=== PATIENT | female | born 1955 | race Two or more races ===

== ENCOUNTER 2020-02-25 18:59 | Inpatient (IN) | payer MEDICAID ==
[~2020-02-25] VITALS: Ht 157.5 cm; Wt 88.5 kg
[2020-02-25] MEDS ORDERED: DEXTROSE 50% WATER 50ML SYRINGE IV ONE (19:10)
[2020-02-25] MEDS ORDERED: CEFTRIAXONE 2 G PREMIX 50 ML IV ONE (19:15)
[2020-02-25] MEDS ORDERED: SODIUM CHLORIDE 0.9% 1000ML BAG (SEPSIS BOLUS) IV ONE (19:15)
[2020-02-25] MEDS ORDERED: METRONIDAZOLE 500 MG PREMIX 100 ML IV ONE (19:15)
[2020-02-25 19:42] LABS: HEMATOCRIT. 28.1 % (36.0-48.0); HEMOGLOBIN. 9.3 g/dL (12.0-16.0); MEAN CORPUSCULAR HEMOGLOBIN 34.4 pg (28.0-32.0); MEAN CORPUSCULAR VOLUME 103.9 fL (81.0-99.0); MEAN PLATELET VOLUME 9.6 fl (7.4-10.4); PLATELET 90 x1000/uL (130-400); RED CELL DISTRIBUTION WIDTH 16.7 % (11.6-14.6)
[2020-02-25] MEDS ORDERED: LACTULOSE 20G/30ML UDC PO ONE (19:45)
[2020-02-25 19:46] LABS: CHLORIDE 100 mEq/L (98-107)
[2020-02-25 19:49] LABS: INR 2.6; PROTHROMBIN TIME 26.2 sec (9.6-11.0)
[2020-02-25] MEDS ORDERED: ALBUMIN HUMAN 12.5GM/50ML (25%) IV ONE (20:00)
[2020-02-25] MEDS ORDERED: CALCIUM CHLORIDE 1GM/10ML SYR IV ONE ×2 (20:00→20:15)
[2020-02-25] MEDS ORDERED: ROCURONIUM BROMIDE 10MG/ML VIAL 5ML IV ONE (20:15)
[2020-02-25] MEDS ORDERED: ETOMIDATE 2MG/ML 10ML VIAL IV ONE (20:15)
[2020-02-25] MEDS ORDERED: NOREPINEPHRINE 8MG/250ML PMX 250 ML IV ONE ×2 (20:25→21:15)
[2020-02-25 20:45] LABS: BG CARBOXYHEMOGLOBIN 0.3 % (0.5-1.5); BG DEOXYHEMOGLOBIN 0.8 % (0.0-5.0); BG FRACTION INSPIRED OXYGEN 100; BG HCO3 ACT 10.6 mmol/L (22.0-26.0); BG METHEMOGLOBIN 0.5 % (0.0-1.5); BG OXYGEN SATURATION 99.2 % (92.0-98.5); BG OXYHEMOGLOBIN 98.4 % (94.0-97.0); BG PCO2 30.8 mmHg (35.0-45.0); BG PH 7.153 (7.350-7.450); BG PO2 232.3 mmHg (75.0-100.0); BG SAMPLE SITE RIGHT RADIAL; BG TIDAL VOLUME(mL) 400 mL; BG TOTAL HEMOGLOBIN 11.5 g/dL (12.0-18.0); BG VENT MODE VENT - A/C; BG VENT RATE 16 set
[2020-02-25 21:01] LABS: CLARITY URINE TURBID (CLEAR); COLOR URINE ORANGE (YELLOW); KETONES URINE TRACE (NEGATIVE); LEUKOCYTE ESTERASE URINE 1+ (NEGATIVE); NITRITE URINE POSITIVE (NEGATIVE); OCCULT BLOOD URINE TRACE (NEGATIVE); PROTEIN URINE 2+ (NEGATIVE); SPECIFIC GRAVITY URINE 1.021 (1.005-1.030)
[2020-02-25 22:26] LABS: PLATELET ESTIMATE DECREASED
[2020-02-25 22:47] LABS: BG BASE EXCESS -20.2 mmol/L (-2.0-2.0); BG CARBOXYHEMOGLOBIN 0.4 % (0.5-1.5); BG FRACTION INSPIRED OXYGEN 50; BG HCO3 ACT 10.5 mmol/L (22.0-26.0); BG METHEMOGLOBIN 0.5 % (0.0-1.5); BG OXYHEMOGLOBIN 94.1 % (94.0-97.0); BG PCO2 43.4 mmHg (35.0-45.0); BG PH 7.002 (7.350-7.450); BG SAMPLE SITE RIGHT RADIAL; BG TIDAL VOLUME(mL) 400 mL; BG TOTAL HEMOGLOBIN 12.5 g/dL (12.0-18.0); BG VENT MODE VENT - A/C; BG VENT RATE 16 set
[2020-02-25 23:30] VITALS: BP 120/89
[2020-02-25 23:51] VITALS: BP 44/29
[2020-02-25 23:54] VITALS: BP 111/78
[2020-02-26] VITALS (89 sets, daily range): BP systolic 40–164; BP diastolic 21–109
[2020-02-26] MEDS ORDERED: ONDANSETRON HCL 4MG/2ML INJ IV PRN (00:15)
[2020-02-26 00:56] LABS: BG BASE EXCESS -21.4 mmol/L (-2.0-2.0); BG CARBOXYHEMOGLOBIN 0.3 % (0.5-1.5); BG DEOXYHEMOGLOBIN 3.4 % (0.0-5.0); BG FRACTION INSPIRED OXYGEN 50; BG HCO3 ACT 8.9 mmol/L (22.0-26.0); BG METHEMOGLOBIN 0.1 % (0.0-1.5); BG OXYGEN SATURATION 96.6 % (92.0-98.5); BG OXYHEMOGLOBIN 96.2 % (94.0-97.0); BG PCO2 35.9 mmHg (35.0-45.0); BG PO2 119.4 mmHg (75.0-100.0); BG SAMPLE SITE RIGHT RADIAL; BG TIDAL VOLUME(mL) 400 mL; BG TOTAL HEMOGLOBIN 12.3 g/dL (12.0-18.0); BG VENT MODE VENT - A/C; BG VENT RATE 16 set
[2020-02-26] MEDS ORDERED: SODIUM BICARBONATE 100 MEQ in DEXTROSE 5% WATER 1,000 ML IV SCH (01:00)
[2020-02-26] MEDS ORDERED: SODIUM BICARBONATE 8.4% 1 MEQ/ML 50ML SYR IV ONE (01:12)
[2020-02-26] MEDS: LACTULOSE 20G/30ML UDC PO SCH ×5 (01:13→22:00)
[2020-02-26] MEDS: PANTOPRAZOLE SODIUM 40 MG/VIAL IV SCH ×2 (01:13→08:54)
[2020-02-26] MEDS ORDERED: SODIUM BICARBONATE 8.4% 1 MEQ/ML 50ML SYR IV SCH (01:15)
[2020-02-26] MEDS: NOREPINEPHRINE 32 MG in DEXT 5% WATER 218 ML IV PRN ×4 (01:18→22:08)
[2020-02-26] MEDS: DEXTROSE 50% WATER 50ML SYRINGE IV PRN ×3 (01:18→22:07)
[2020-02-26] MEDS: BLOOD SUGAR DIAGNOSTIC STRIP TEST SCH ×9 (01:42→18:19)
[2020-02-26] MEDS ORDERED: CEFEPIME 1,000 MG in DEXTROSE 5% WATER 50 ML IV SCH (02:00)
[2020-02-26] MEDS: METRONIDAZOLE 500 MG PREMIX 100 ML IV SCH ×3 (03:07→17:59)
[2020-02-26 05:40] LABS: HEMATOCRIT. 33.3 % (36.0-48.0); HEMOGLOBIN. 10.8 g/dL (12.0-16.0); MEAN CORPUSCULAR HEMOGLOBIN 34.6 pg (28.0-32.0); MEAN CORPUSCULAR VOLUME 106.7 fL (81.0-99.0); RED BLOOD CELL COUNT 3.12 mill/uL (4.2-5.4); RED CELL DISTRIBUTION WIDTH 17.1 % (11.6-14.6)
[2020-02-26 05:47] LABS: CHLORIDE 100 mEq/L (98-107)
[2020-02-26 07:50] LABS: PLATELET ESTIMATE SLIGHTLY DECREASED
[2020-02-26 07:51] LABS: MEAN PLATELET VOLUME 8.9 fl (7.4-10.4); PLATELET 120 x1000/uL (130-400)
[2020-02-26] MEDS: PHENYLEPHRINE 100 MG in DEXT 5% WATER 240 ML IV PRN ×3 (08:01→22:22)
[2020-02-26 08:54] LABS: BG BASE EXCESS -22.3 mmol/L (-2.0-2.0); BG CARBOXYHEMOGLOBIN 0.3 % (0.5-1.5); BG DEOXYHEMOGLOBIN 4.9 % (0.0-5.0); BG FRACTION INSPIRED OXYGEN 50; BG HCO3 ACT 7.8 mmol/L (22.0-26.0); BG METHEMOGLOBIN 0.3 % (0.0-1.5); BG OXYGEN SATURATION 95.1 % (92.0-98.5); BG OXYHEMOGLOBIN 94.5 % (94.0-97.0); BG PCO2 32.2 mmHg (35.0-45.0); BG PH 7.003 (7.350-7.450); BG PO2 98.3 mmHg (75.0-100.0); BG SAMPLE SITE RIGHT RADIAL; BG TIDAL VOLUME(mL) 400 mL; BG TOTAL HEMOGLOBIN 11.4 g/dL (12.0-18.0); BG VENT MODE VENT - A/C; BG VENT RATE 20 set
[2020-02-26] MEDS ORDERED: SODIUM BICARBONATE 8.4% 1 MEQ/ML 50ML SYR IV NR (09:00)
[2020-02-26] MEDS ORDERED: SODIUM POLYSTYRENE SULFONATE 15 G/60 ML BOT PO NR (11:00)
[2020-02-26] MEDS ORDERED: SODIUM BICARBONATE 150 MEQ in DEXTROSE 5% WATER 1,000 ML IV SCH (11:00)
[2020-02-26 11:03] LABS: CREATINE KINASE 604 IU/L (26-192)
[2020-02-26] MEDS ORDERED: LACTULOSE 300 ML in WATER FOR IRRIGATION,STERILE 700 ML IR SCH (12:00)
[2020-02-26] MEDS ORDERED: PHYTONADIONE 10MG/ML AMP SUBCUT NR (12:30)
[2020-02-26] MEDS: VASOPRESSIN 20 UNIT in SODIUM CHLORIDE 0.9% 99 ML IV PRN ×2 (14:08→22:23)
[2020-02-26] MEDS ORDERED: FLUDROCORTISONE ACETATE 0.1MG TABLET PO SCH (17:00)
[2020-02-26] MEDS ORDERED: MIDODRINE HCL 5MG TABLET PO SCH (17:00)
[2020-02-26] MEDS ORDERED: PANTOPRAZOLE SODIUM 40 MG/VIAL IV SCH (17:15)
[2020-02-26 17:40] LABS: HEPATITIS B SURFACE ANTIGEN NEGATIVE
[2020-02-26] MEDS ORDERED: OCTREOTIDE 1,000 MCG in SODIUM CHLORIDE 0.9% 98 ML IV SCH (18:00)
[2020-02-26 18:10] LABS: HEPATITIS A AB IGM NEGATIVE (NEGATIVE)
[2020-02-26] MEDS ORDERED: RIFAXIMIN 550 MG TABLET NG SCH (21:00)
[2020-02-26 21:19] LABS: HEMATOCRIT 26.1 % (36.0-48.0); HEMOGLOBIN 7.7 g/dL (12.0-16.0)
[2020-02-26] MEDS ORDERED: LINEZOLID 600 MG PREMIX 300 ML IV SCH (23:00)
[2020-02-27] VITALS (17 sets, daily range): BP systolic 48–182; BP diastolic 24–79
[2020-02-27] MEDS ORDERED: EPINEPHRINE 10 MG in SODIUM CHLORIDE 0.9% 240 ML IV PRN (03:00)
[2020-02-27] MEDS ORDERED: PHYTONADIONE 10MG/ML AMP SUBCUT NR (09:00)
== END 2020-02-27 03:10 | disposition expired | DRG 720 ==
LOC: ER 18:59 → CVICU 21:05 → EDBEDREQTM 21:16 → EDBEDREQSVC 21:16 → EDBEDREQ 21:16 → ENRESERV 21:28
PROVIDERS: ADMIT Internal Medicine; ATTEND Internal Medicine
PROC: 5A1945Z Respiratory Ventilation, 24-96 Consecutive Hours (ICD-10-PCS; principal; 2020-02-25)
PROC: 0BH18EZ Insertion of Endotracheal Airway into Trachea, Via Natural or Artificial Opening Endoscopic (ICD-10-PCS; 2020-02-25)
PROC: 30233M1 Transfusion of Nonautologous Plasma Cryoprecipitate into Peripheral Vein, Percutaneous Approach (ICD-10-PCS; 2020-02-26)
PROC: 30233N1 Transfusion of Nonautologous Red Blood Cells into Peripheral Vein, Percutaneous Approach (ICD-10-PCS; 2020-02-27)
DX: A41.9 Sepsis, unspecified organism (principal); E43 Unspecified severe protein-calorie malnutrition; E11.65 Type 2 diabetes mellitus with hyperglycemia; G93.41 Metabolic encephalopathy; E87.5 Hyperkalemia; J96.00 Acute respiratory failure, unspecified whether with hypoxia or hypercapnia; N17.0 Acute kidney failure with tubular necrosis; N18.9 Chronic kidney disease, unspecified; N39.0 Urinary tract infection, site not specified; R65.21 Severe sepsis with septic shock; J18.9 Pneumonia, unspecified organism; D53.9 Nutritional anemia, unspecified; D68.9 Coagulation defect, unspecified; D69.6 Thrombocytopenia, unspecified; E11.22 Type 2 diabetes mellitus with diabetic chronic kidney disease; E11.649 Type 2 diabetes mellitus with hypoglycemia without coma; E66.9 Obesity, unspecified; E87.1 Hypo-osmolality and hyponatremia; E87.4 Mixed disorder of acid-base balance; J81.1 Chronic pulmonary edema; J90 Pleural effusion, not elsewhere classified; K72.90 Hepatic failure, unspecified without coma; K74.60 Unspecified cirrhosis of liver; K80.20 Calculus of gallbladder without cholecystitis without obstruction; R18.8 Other ascites; Z66 Do not resuscitate; R74.0 Nonspecific elevation of levels of transaminase and lactic acid dehydrogenase [LDH]; Z68.35 Body mass index [BMI] 35.0-35.9, adult; Z79.899 Other long term (current) drug therapy
CPT/HCPCS: 36415; 36600; 71045; 74176; 76770; 80053; 81003; 82140; 82270; 82375; 82550; 82805; 82962; 83605; 83880; 84145; 84484; 85014; 85018; 85025; 86705; 86709; 86803; 86850; 86900; 86920; 86927; 87070; 87076; 87077; 87186; 87340; 93005; 93970; 94002; 99291; C9113; J0692; J0696; J2020; J2354; J2370; J3430; J3490; J7030; J7050; J7060; J7070; P9016; P9017; P9047